=== PATIENT | male | born 1950 | race American Indian/Alaskan Native ===

== ENCOUNTER 2018-06-05 15:14 | Emergency (ER) | payer MEDICARE ==
--- NOTE | 2018-06-05 18:08 | Emergency Department Report ---
ED Lower Extremity HPI - General Chief Complaint: Extremity Injury, Lower Stated Complaint: KNEE PAIN Time Seen by Provider: 06/05/18 17:55 Source: patient Mode of arrival: Ambulatory Limitations: No Limitations - History of Present Illness Initial Comments: Patient reports that he was paddling in the yard today. He states that he was on a hill and lost his footing and twisted his knee. He denies falling. His took him to the local urgent care who sent him to the emergency room due to swelling of the right lower extremity and concern for DVT. Ultrasound was completed and is negative for DVT per preliminary read from radiology. On exam patient has bilateral chronic venous insufficiency. Patient has had a CVA in the past. He has no wounds. He does have swelling of his right knee. MD Complaint: knee injury -: Sudden Injury: Knee: Right Type of Injury: inversion Place: home Improves With: nothing Worsens With: nothing Context: other (twisted) - Related Data Allergies Allergy/AdvReac Type Severity Reaction Status Date / Time No Known Allergies Allergy Unverified 06/05/18 15:39 ED Review of Systems ROS: Stated complaint: KNEE PAIN Other details as noted in HPI Comment: All other systems reviewed and negative Constitutional: denies: chills Eyes: denies: eye pain ENT: denies: throat pain Respiratory: denies: orthopnea Cardiovascular: denies: chest pain Endocrine: denies: intolerance to cold Gastrointestinal: denies: nausea Genitourinary: denies: urgency Musculoskeletal: as per HPI, joint swelling. denies: back pain, arthralgia, myalgia, other Skin: as per HPI. denies: rash, lesions Neurological: denies: weakness Psychiatric: denies: anxiety Hematological/Lymphatic: denies: easy bleeding ED Past Medical Hx - Past Medical History Hx Hypertension: Yes Hx CVA: Yes (full recovery) Additional medical history: elevated cholesterol - Surgical History Past Surgical History?: No - Family History Family history: no significant - Social History Smoking Status: Current Every Day Smoker Substance Use Type: None ED Physical Exam - General Limitations: No Limitations General appearance: alert, in no apparent distress - Head Head exam: Present: atraumatic - Eye Eye exam: Present: PERRL Pupils: Present: normal accommodation - ENT ENT exam: Present: normal exam, mucous membranes moist - Neck Neck exam: Present: normal inspection - Respiratory Respiratory exam: Present: normal lung sounds bilaterally - Cardiovascular Cardiovascular Exam: Present: regular rate - GI/Abdominal GI/Abdominal exam: Present: soft, normal bowel sounds - Rectal Rectal exam: Present: deferred - Extremities Exam Extremities exam: Present: normal inspection, normal capillary refill, pedal edema (chronic venous insufficiency bilateral). Absent: tenderness - Expanded Lower Extremity Exam Right Upper Leg exam: Present: normal inspection Knee exam: Present: swelling (MILD SUB PATELLAR), effusion, full knee extension. Absent: abrasion, laceration, ecchymosis, deformity, crepidus, dislocation, erythema, pain w/ pronation/supination, posterior draw sign, pain/ laxity with valgus, pain/laxity with varus Lower Leg exam: Present: swelling (swelling of the lower legs appears to be chronic in nature. Patient has thick scaly skin. Consistent with chronic venous insufficiency) - Back Exam Back exam: Present: normal inspection, full ROM. Absent: CVA tenderness (R), CVA tenderness (L) - Neurological Exam Neurological exam: Present: alert, oriented X3, CN II-XII intact, normal gait, reflexes normal - Psychiatric Psychiatric exam: Present: normal affect, normal mood - Skin Skin exam: Present: warm, dry, other (chronic SKIN thickening of bilateral lower extremities.). Absent: rash ED Course Vital Signs 06/05/18 06/05/18 15:35 18:49 Temperature 97.9 F Pulse Rate 73 76 Respiratory 20 18 Rate Blood Pressure 137/93 Blood Pressure 123/85 [Right] O2 Sat by Pulse 99 96 Oximetry - Reevaluation(s) Reevaluation #1: 06/05/18 18:06 She denies shortness of breath chest pain HIS medications include Norvasc, lisinopril, HCTZ and simvastatin. Patient also reports taking daily aspirin. ED Lower Extremity MDM - Radiology Data Radiology results: report reviewed, image reviewed - Medical Decision Making Ultrasound negative XRAY NOTED - Differential Diagnosis rule out DVT, status post twisting of right knee rule out effusion. Critical care attestation.: If time is entered above; I have spent that time in minutes in the direct care of this critically ill patient, excluding procedure time. ED Disposition Clinical Impression: Knee pain, Venous insufficiency, Osteoarthritis Disposition: - TO HOME OR SELFCARE Is pt being admited?: No Does the pt Need Aspirin: No Condition: Stable Instructions: Arthralgia (ED) Additional Instructions: Activity as tolerated Diet cardiac Follow-up with primary care if persistent IF KNEE PAIN PERSISTS PARTH GIVEN YOU ORTHO REFERRAL BELOW MOTRIN WITH FOOD WILL HELP WITH DISCOMFORT Ice the knee tonight Tomorrow he should use warm compresses for comfort Motrin or Tylenol can be used for pain Shortage take Motrin with food ARAMIS WRAP FOR COMFORT YOU HAVE NO BLOOD CLOT IN YOUR LEG Referrals: HEATHER MORTENSEN MD [Staff Physician] - 3-5 Days Time of Disposition: 18:07
[2018-06-05 18:50] VITALS: BP 123/85
--- NOTE | 2018-06-05 19:06 | XRay Report ---
FINAL REPORT EXAM: XR KNEE 3V RT HISTORY: PAIN SP FALL TECHNIQUE: Three views of the right knee PRIORS: None. FINDINGS: The bones are normally aligned and mineralized. There is small osteophyte formation on the posterior patella. Otherwise, the joint spaces are well-preserved. There is no evidence of acute fracture. There is atherosclerotic calcification. IMPRESSION: No evidence of acute fracture or subluxation. Mild osteoarthrosis of the patellofemoral joint.
--- NOTE | 2018-06-06 14:35 | Vascular Lab Report ---
Right Lower Extremity Venous Duplex Study: Reason for Exam: Pain and swelling of the right lower extremity. Comments on the Right: All veins visualized are freely compressible without evidence of internal echogenicity. Flow is spontaneous and phasic throughout. No evidence of acute or chronic thrombus is seen in any of the vessels visualized. A large soft tissue change in the right knee area is consistent with a Lloyd's cyst. Comments on the Left: A limited duplex study was done of the proximal veins of the left lower extremity. All veins visualized are freely compressible without evidence of internal echogenicity. Flow is spontaneous and phasic throughout. No evidence of acute or chronic thrombus is seen in any of the vessels visualized. Impression: No evidence of acute or chronic deep venous thrombosis in the right lower extremity. A large soft tissue change in the right knee area is consistent with a Lloyd's cyst.
== END 2018-06-05 18:55 | disposition home or self-care (01) ==
LOC: ED 15:14
DX: M17.11 Unilateral primary osteoarthritis, right knee (principal); I87.2 Venous insufficiency (chronic) (peripheral); I10 Essential (primary) hypertension; F17.200 Nicotine dependence, unspecified, uncomplicated; Z86.718 Personal history of other venous thrombosis and embolism
CPT/HCPCS: 99284